=== PATIENT | female | born 1985 | race African-American/Black ===

== ENCOUNTER → 2019-11-20 | Outpatient (CLI) | payer OTHER ==
[2019-11-20 17:10] LABS: A TYPE INFLUENZA AG NEGATIVE (NEGATIVE); B INFLUENZA AG NEGATIVE (NEGATIVE)
== END ==
LOC: LAB 16:07
PROVIDERS: ATTEND Nurse Practitioner Family
DX: J06.9 Acute upper respiratory infection, unspecified (principal)
CPT/HCPCS: 87804

== ENCOUNTER 2020-05-09 12:09 | Outpatient (CLI) | payer MEDICAID ==
[2020-05-09 12:58] LABS: APPEARANCE,URINE CLEAR; BILIRUBIN,URINE NEGATIVE (NEGATIVE); COLOR,URINE YELLOW; GLUCOSE, URINE NEGATIVE (NEGATIVE); KETONES,URINE TRACE mg/dL (NEGATIVE); LEUKOCYTE ESTERASE,URINE NEGATIVE (NEGATIVE); NITRITE,URINE NEGATIVE (NEGATIVE); PROTEIN,URINE 30 mg/dL (NEGATIVE); URINE SPECIFIC GRAVITY 1.019; UROBILINOGEN,URINE NEGATIVE mg/dL (<2.0)
[2020-05-09] MEDS ORDERED: HYDROXYZINE PAMOATE 50 MG CAPSULE PO ONE (13:05)
[2020-05-09] MEDS ORDERED: HYDROXYZINE PAMOATE 50 MG CAPSULE ONE (13:06)
[2020-05-09 13:30] LABS: URINE AMPHETAMINES SCREEN NEGATIVE; URINE BARBITURATES SCREEN NEGATIVE; URINE BENZODIAZEPINES SCREEN NEGATIVE; URINE COCAINE SCREEN NEGATIVE; URINE MARIJUANA (THC) SCREEN NEGATIVE; URINE METHADONE SCREEN NEGATIVE; URINE PHENCYCLIDINE SCREEN NEGATIVE
--- NOTE | 2020-05-09 14:13 | Non Stress Test Report ---
Non Stress Test Datetime Report Generated by CPN: 05/09/2020 14:12 DEMOGRAPHIC Test Number: 1 EGA NST: 33.1 INDICATION Indication for Study (NST) Other: possible SROM VITAL SIGNS Temperature - NST: 98.4 Pulse - NST: 85 RESP - NST: 16 NBPSYS NST: 113 NBPDIA NST: 67 MONITORING Monitor Explained: Monitor Explained; Test Explained; Patient Verbalized Understanding Time on Monitor: 05/09/2020 12:35 Time off Monitor: 05/09/2020 13:56 NST Duration: 81 NST INTERVENTIONS NST Interventions: PO Hydration; Reposition Patient Physician Notified NST: N Mccullough CNM BABY A: [id number] BABY A Movement : Present Contraction Frequency : 2-5 FHR Baseline : 135 FHR Baseline : 135 Accelerations : Prolonged Decelerations : None Variability : Moderate 6-25bpm NST Review: Meets Criteria for Reactive NST NST Review and Verified By : SAutry NST Results: Reactive NST COMMENTS NST Comments: pt unaware of uc NST REPORT Report Trigger: Send Report
[2020-05-09] MEDS ORDERED: RINGERS SOLUTION,LACTATED 1,000 ML IV ONE (14:43)
[2020-05-09] MEDS ORDERED: RINGERS SOLUTION,LACTATED 1,000 ML IV PRN (14:43)
== END 2020-05-09 14:31 | disposition home or self-care (01) ==
LOC: LC 12:09
PROVIDERS: ATTEND Obstetrics & Gynecology Gynecology
DX: O47.03 False labor before 37 completed weeks of gestation, third trimester (principal); O09.523 Supervision of elderly multigravida, third trimester; Z3A.33 33 weeks gestation of pregnancy
CPT/HCPCS: 59025; 81001; 80307; 84112; J3490

== ENCOUNTER 2020-06-23 01:00 | Inpatient (IN) | payer MEDICAID ==
[2020-06-23] MEDS ORDERED: OXYTOCIN/0.9 % SODIUM CHLORIDE 30 UNIT/500 ML RTUINJ IV PRN ×2 (01:06→12:13)
[2020-06-23] MEDS ORDERED: ACETAMINOPHEN 325 MG TABLET PO PRN ×2 (01:06→12:13)
[2020-06-23] MEDS ORDERED: MAG HYDROX/AL HYDROX/SIMETH SUSP 30 ML UDCUP PO PRN (01:06)
[2020-06-23] MEDS ORDERED: DINOPROSTONE 10 MG VAGINAL INSERT.SR PV ONE ×2 (01:06→01:30)
[2020-06-23] MEDS ORDERED: RINGERS SOLUTION,LACTATED 300 ML IV ONE (01:06)
[2020-06-23] MEDS ORDERED: ZOLPIDEM TARTRATE 5 MG TABLET PO PRN ×2 (01:06→12:13)
[2020-06-23 01:41] LABS: ABSOLUTE LYMPHOCYTES (AUTO) 1.8 10^3/uL (0.5-4.7); ABSOLUTE MONOCYTES (AUTO) 0.5 10^3/uL (0.1-1.4); ABSOLUTE NEUT (AUTO) 5.5 10^3/uL (1.7-8.2); BASOPHILS % (AUTO) 0.3 % (0-2); EOSINOPHILS % (AUTO) 0.2 % (0-6); HEMOGLOBIN 12.8 g/dL (12.0-15.5); LYMPHOCYTES % (AUTO) 22.8 % (13-45); MEAN CORPUSCULAR HEMOGLOBIN 32.4 pg (27.0-33.4); MEAN CORPUSCULAR HGB CONC 34.6 g/dL (32.0-36.0); MEAN CORPUSCULAR VOLUME 94 fl (80-97); MONOCYTES % (AUTO) 6.3 % (3-13); PLATELET COUNT 138 10^3/uL (150-450); RED BLOOD COUNT 3.95 10^6/uL (3.72-5.28); RED CELL DISTRIBUTION WIDTH 13.4 % (11.5-14.0); SEGMENTED NEUTROPHILS % (AUTO) 70.4 % (42-78); TOTAL CELLS COUNTED % (AUTO) 100 %; WHITE BLOOD COUNT 7.8 10^3/uL (4.0-10.5)
[2020-06-23 02:01] LABS: ALBUMIN 3.4 g/dL (3.5-5.0); ALKALINE PHOSPHATASE 89 U/L (38-126); ANION GAP 10 (5-19); ASPARTATE AMINO TRANSFERASE 43 U/L (14-36); BILIRUBIN,TOTAL 0.4 mg/dL (0.2-1.3); BLOOD UREA NITROGEN 8 mg/dL (7-20); CALCIUM 9.1 mg/dL (8.4-10.2); CARBON DIOXIDE 19 mmol/L (22-30); CHLORIDE 106 mmol/L (98-107); GLUCOSE 114 mg/dL (75-110); POTASSIUM 4.2 mmol/L (3.6-5.0); TOTAL PROTEIN 6.3 g/dL (6.3-8.2)
[2020-06-23] MEDS ORDERED: DINOPROSTONE 10 MG VAGINAL INSERT.SR ONE (02:12)
[2020-06-23] MEDS: RINGERS SOLUTION,LACTATED 1,000 ML IV PRN ×2 (02:32→09:45)
[2020-06-23 03:33] LABS: APPEARANCE,URINE SLIGHTLY-CLOUDY; BILIRUBIN,URINE NEGATIVE (NEGATIVE); COLOR,URINE YELLOW; GLUCOSE, URINE 50 mg/dL (NEGATIVE); KETONES,URINE NEGATIVE (NEGATIVE); LEUKOCYTE ESTERASE,URINE TRACE (NEGATIVE); NITRITE,URINE NEGATIVE (NEGATIVE); PROTEIN,URINE 30 mg/dL (NEGATIVE); URINE SPECIFIC GRAVITY 1.021; UROBILINOGEN,URINE NEGATIVE mg/dL (<2.0)
[2020-06-23 03:48] LABS: URINE AMPHETAMINES SCREEN NEGATIVE; URINE BARBITURATES SCREEN NEGATIVE; URINE BENZODIAZEPINES SCREEN NEGATIVE; URINE COCAINE SCREEN NEGATIVE; URINE MARIJUANA (THC) SCREEN NEGATIVE; URINE METHADONE SCREEN NEGATIVE; URINE PHENCYCLIDINE SCREEN NEGATIVE
[2020-06-23] MEDS ORDERED: OXYTOCIN 10 UNIT/ML VIAL ONE (06:18)
[2020-06-23] MEDS ORDERED: LIDOCAINE 1% INJ-PF (10 MG/ML) 30 ML SDV ONE (06:18)
[2020-06-23] MEDS ORDERED: OXYTOCIN/0.9 % SODIUM CHLORIDE 30 UNIT/500 ML RTUINJ ONE (06:18)
[2020-06-23] MEDS ORDERED: MISOPROSTOL 0.2 MG TABLET ONE (06:18)
--- NOTE | 2020-06-23 08:43 | L&D Progress Notes ---
PROGRESS NOTES Datetime Report Generated by CPN: 06/23/2020 08:42 PROGRESS NOTE Comment: resting on rounds, discussed POC, irreg uc's, hsb at BS, Cat 1 strip LAST VAGINAL EXAM-NURSING Nursing Exam Dilitation: 1.0 Nursing Exam Effacement: thick Nursing Exam Station: high Nursing Exam Contractions: toco zeroed SIGNATURE SIGNATURE: [id number] Assignment: Paz Beltran MD Signature: with User ID: Alexa : with User ID: Alexa
[2020-06-23] MEDS ORDERED: PROMETHAZINE HCL INJ 25 MG/1 ML VIAL IV PRN (12:13)
[2020-06-23] MEDS ORDERED: PROMETHAZINE HCL 25 MG SUPP.RECT PR PRN (12:13)
[2020-06-23] MEDS ORDERED: ACETAMINOPHEN WITH CODEINE #3 TABLET PO PRN ×2 (12:13)
[2020-06-23] MEDS ORDERED: DIPH/PERTUSS(ACELL)/TETANUS VAC/PF 0.5 ML SYR (>=10YO) IM PRN (12:13)
[2020-06-23] MEDS ORDERED: NA PHOS,M-B/NA PHOS,DI-BA (ADULT) 133 ML ENEMA PR PRN (12:13)
[2020-06-23] MEDS ORDERED: DIBUCAINE 1% OINTMENT 28 GM TP PRN (12:13)
[2020-06-23] MEDS ORDERED: MAGNESIUM HYDROXIDE SUSP 30 ML UDCUP PO PRN (12:13)
[2020-06-23] MEDS ORDERED: BENZOCAINE/MENTHOL AEROSOL SPRAY 56 ML TOP PRN (12:13)
[2020-06-23] MEDS ORDERED: GLYCERIN/WITCH HAZEL LEAF 1 EACH MED..WIPE TP PRN (12:13)
[2020-06-23] MEDS ORDERED: PSEUDOEPHEDRINE HCL 30 MG TABLET PO PRN (12:13)
[2020-06-23] MEDS ORDERED: DIPHENHYDRAMINE HCL 25 MG CAPSULE PO PRN (12:13)
[2020-06-23] MEDS ORDERED: PROMETHAZINE HCL 25 MG TABLET PO PRN (12:13)
[2020-06-23] MEDS ORDERED: MEASLES,MUMPS&RUBELLA VACC/PF 0.5 ML VIAL SUBCUT PRN (12:13)
[2020-06-23] MEDS ORDERED: MISOPROSTOL 0.2 MG TABLET PR ONE (12:49)
[2020-06-23] MEDS ORDERED: ACETAMINOPHEN WITH CODEINE #3 TABLET ONE (13:59)
[2020-06-23] MEDS ORDERED: IBUPROFEN 800 MG TABLET ONE (14:00)
[2020-06-23] MEDS: IBUPROFEN 800 MG TABLET PO SCH ×2 (15:16→22:16)
[2020-06-23] MEDS: FERROUS SULFATE 325 MG TABLET PO SCH (17:19)
[2020-06-23] MEDS: DOCUSATE SODIUM 100 MG CAPSULE PO SCH (17:19)
[2020-06-23] MEDS: FAMOTIDINE 20 MG TABLET PO SCH (22:16)
[2020-06-24] MEDS: IBUPROFEN 800 MG TABLET PO SCH ×3 (05:13→21:08)
[2020-06-24 07:37] LABS: HEMOGLOBIN 12.8 g/dL (12.0-15.5); MEAN CORPUSCULAR HEMOGLOBIN 32.3 pg (27.0-33.4); MEAN CORPUSCULAR HGB CONC 33.8 g/dL (32.0-36.0); MEAN CORPUSCULAR VOLUME 96 fl (80-97); PLATELET COUNT 121 10^3/uL (150-450); RED BLOOD COUNT 3.97 10^6/uL (3.72-5.28); RED CELL DISTRIBUTION WIDTH 13.4 % (11.5-14.0); WHITE BLOOD COUNT 10.6 10^3/uL (4.0-10.5)
--- NOTE | 2020-06-24 09:43 | PDOC PROGRESS REPORT ---
Subjective-OB Progress Note for:: 06/24/20 Subjective: Doing well, no c/o, feeling good, Physical Exam (OB) Vital Signs: Temp Pulse Resp BP Pulse Ox 98.2 F 67 18 121/62 99 06/24/20 08:01 06/24/20 08:01 06/24/20 08:01 06/24/20 08:01 06/24/20 08:01 Intake & Output 06/23/20 06/24/20 06/25/20 06:59 06:59 06:59 Intake Total 902 Balance 902 Weight 89.4 kg - PIH/Pre-Eclampsia Clonus: Negative Headache: Absent Epigastric Pain: No Visual Changes: No - Maternal Morbidity 59. Maternal Morbidity (serious complications experinced by the mother associated with labor and delivery: None of the above - Lochia Lochia Amount: Small 10-25 ml Lochia Color: Rubra/Red - Abdomen Description: Round Hernia Present: No Fundal Description: Firm, Midline Fundal Height: u/u - u/2 Objective-Diagnostic Laboratory: 06/24/20 07:20 06/23/20 01:30 06/24/20 07:20 WBC 10.6 H RBC 3.97 Hgb 12.8 Hct 38.0 MCV 96 MCH 32.3 MCHC 33.8 RDW 13.4 Plt Count 121 L Assessment and Plan(PN) - Assessment and Plan (1) AMA (advanced maternal age) multigravida 35+ Qualifiers: Trimester: first trimester Qualified Code(s): O09.521 - Supervision of elderly multigravida, first trimester Is this a current diagnosis for this admission?: Yes (2) Precipitate labor, delivered, current hospitalization Is this a current diagnosis for this admission?: Yes (3) Vaginal delivery Is this a current diagnosis for this admission?: Yes - Time Spent with Patient Time with patient: Less than 15 minutes Medications reviewed and adjusted accordingly: Yes - Disposition Anticipated Discharge Disposition: Home, Self Care Anticipated Discharge Timeframe: within 24 hours
[2020-06-24] MEDS: DOCUSATE SODIUM 100 MG CAPSULE PO SCH ×2 (11:22→17:32)
[2020-06-24] MEDS: FAMOTIDINE 20 MG TABLET PO SCH ×2 (11:22→21:08)
[2020-06-24] MEDS: SENNOSIDES/DOCUSATE 8.6-50 MG 1 EACH TABLET PO SCH (11:22)
[2020-06-24] MEDS: FERROUS SULFATE 325 MG TABLET PO SCH ×2 (11:22→17:32)
[2020-06-24] MEDS: PRENATAL VITAMIN W DHA CAPSULE PO SCH (11:24)
[2020-06-25] MEDS: IBUPROFEN 800 MG TABLET PO SCH ×2 (05:34→14:33)
[2020-06-25] MEDS: PRENATAL VITAMIN W DHA CAPSULE PO SCH (09:35)
[2020-06-25] MEDS: DOCUSATE SODIUM 100 MG CAPSULE PO SCH (09:35)
[2020-06-25] MEDS: FERROUS SULFATE 325 MG TABLET PO SCH (09:35)
[2020-06-25] MEDS: SENNOSIDES/DOCUSATE 8.6-50 MG 1 EACH TABLET PO SCH (09:35)
[2020-06-25] MEDS: FAMOTIDINE 20 MG TABLET PO SCH (09:35)
--- NOTE | 2020-06-25 09:47 | PDOC PROGRESS REPORT ---
Subjective-OB Progress Note for:: 06/25/20 Subjective: Doing well, holding baby, ready to go home, Physical Exam (OB) Vital Signs: Temp Pulse Resp BP Pulse Ox 97.5 F 71 18 122/76 99 06/24/20 19:36 06/24/20 19:36 06/24/20 19:36 06/24/20 19:36 06/24/20 19:36 Intake & Output 06/24/20 06/25/20 06/26/20 06:59 06:59 06:59 Intake Total 902 800 Balance 902 800 - PIH/Pre-Eclampsia DTR's: 2 + Clonus: Negative Headache: Absent Epigastric Pain: No Visual Changes: No - Maternal Morbidity 59. Maternal Morbidity (serious complications experinced by the mother associated with labor and delivery: None of the above - Lochia Lochia Amount: Scant < 10 ml Lochia Color: Serosa/Brown - Abdomen Description: Soft, Round Hernia Present: No Fundal Description: Firm, Midline Fundal Height: u/u - u/2 Objective-Diagnostic Laboratory: 06/24/20 07:20 06/23/20 01:30 Assessment and Plan(PN) - Assessment and Plan (1) AMA (advanced maternal age) multigravida 35+ Qualifiers: Trimester: first trimester Qualified Code(s): O09.521 - Supervision of cass gonzalez multigravida, first trimester Is this a current diagnosis for this admission?: Yes (2) Precipitate labor, delivered, current hospitalization Is this a current diagnosis for this admission?: Yes (3) Vaginal delivery Is this a current diagnosis for this admission?: Yes - Time Spent with Patient Time with patient: Less than 15 minutes Medications reviewed and adjusted accordingly: Yes - Disposition Anticipated Discharge Disposition: Home, Self Care Anticipated Discharge Timeframe: within 24 hours - home today
--- NOTE | 2020-06-25 09:50 | PDOC DISCHARGE SUMMARY ---
Impression - Admit/DC Date/PCP Admission Date/Primary Care Provider: 06/23/20 01:00 DAPHNE PINTO MD Discharge Date: 06/25/20 - Discharge Diagnosis (1) AMA (advanced maternal age) multigravida 35+ Is this a current diagnosis for this admission?: Yes (2) Precipitate labor, delivered, current hospitalization Is this a current diagnosis for this admission?: Yes (3) Vaginal delivery Is this a current diagnosis for this admission?: Yes - Additional Information Resuscitation Status: Full Code Discharge Diet: As Tolerated, Regular Discharge Activity: Activity As Tolerated Referrals: DAPHNE PINTO MD [Primary Care Provider] - (rtc 4 weeks) Home Medications: Pnv 102/Iron/Folate 1/Dss/Dha [Vitafol Fe+ Docusate Combo Pck] 1 each PO DAILY 05/09/20 HPI Gestational Age: 39.4 Reason(s) for Admission: Induction of Labor, Gestional Diabetes, Advanced Maternal Age Procedures: NST, Ultrasound Complication(s): Laceration-Perineal Laceration-Degree: 1st Hospital Course Hospital Course: routine 59. Maternal Morbidity (serious complications experinced by the mother associated with labor and delivery: None of the above Results Laboratory Results: WBC 10.6 10^3/uL (4.0-10.5) H 06/24/20 07:20 RBC 3.97 10^6/uL (3.72-5.28) 06/24/20 07:20 Hgb 12.8 g/dL (12.0-15.5) 06/24/20 07:20 Hct 38.0 % (36.0-47.0) 06/24/20 07:20 MCV 96 fl (80-97) 06/24/20 07:20 MCH 32.3 pg (27.0-33.4) 06/24/20 07:20 MCHC 33.8 g/dL (32.0-36.0) 06/24/20 07:20 RDW 13.4 % (11.5-14.0) 06/24/20 07:20 Plt Count 121 10^3/uL (150-450) L 06/24/20 07:20 Lymph % (Auto) 22.8 % (13-45) 06/23/20 01:30 Nye % (Auto) 6.3 % (3-13) 06/23/20 01:30 Eos % (Auto) 0.2 % (0-6) 06/23/20 01:30 Baso % (Auto) 0.3 % (0-2) 06/23/20 01:30 Absolute Neuts (auto) 5.5 10^3/uL (1.7-8.2) 06/23/20 01:30 Absolute Lymphs (auto) 1.8 10^3/uL (0.5-4.7) 06/23/20 01:30 Absolute Monos (auto) 0.5 10^3/uL (0.1-1.4) 06/23/20 01:30 Absolute Eos (auto) 0.0 10^3/uL (0.0-0.6) 06/23/20 01:30 Absolute Basos (auto) 0.0 10^3/uL (0.0-0.2) 06/23/20 01:30 Seg Neutrophils % 70.4 % (42-78) 06/23/20 01:30 Sodium 135.1 mmol/L (137-145) L 06/23/20 01:30 Potassium 4.2 mmol/L (3.6-5.0) 06/23/20 01:30 Chloride 106 mmol/L (98-107) 06/23/20 01:30 Carbon Dioxide 19 mmol/L (22-30) L 06/23/20 01:30 Anion Gap 10 (5-19) 06/23/20 01:30 BUN 8 mg/dL (7-20) 06/23/20 01:30 Creatinine 0.66 mg/dL (0.52-1.25) 06/23/20 01:30 Est GFR ( Amer) > 60 (>60) 06/23/20 01:30 Est GFR (MDRD) Non-Af > 60 (>60) 06/23/20 01:30 Glucose 114 mg/dL (75-110) H 06/23/20 01:30 Calcium 9.1 mg/dL (8.4-10.2) 06/23/20 01:30 Total Bilirubin 0.4 mg/dL (0.2-1.3) 06/23/20 01:30 Direct Bilirubin 0.0 mg/dL (0.0-0.4) 06/23/20 01:30 Neonat Total Bilirubin Not Reportable 06/23/20 01:30 Neonat Direct Bilirubin Not Reportable 06/23/20 01:30 Neonat Indirect Bili Not Reportable 06/23/20 01:30 AST 43 U/L (14-36) H 06/23/20 01:30 ALT 35 U/L (<35) 06/23/20 01:30 Alkaline Phosphatase 89 U/L (38-126) 06/23/20 01:30 Total Protein 6.3 g/dL (6.3-8.2) 06/23/20 01:30 Albumin 3.4 g/dL (3.5-5.0) L 06/23/20 01:30 Urine Color YELLOW 06/23/20 02:15 Urine Appearance SLIGHTLY-CLOUDY 06/23/20 02:15 Urine pH 6.0 (5.0-9.0) 06/23/20 02:15 Ur Specific [place] 1.021 06/23/20 02:15 Urine Protein 30 mg/dL (NEGATIVE) H 06/23/20 02:15 Urine Glucose (UA) 50 mg/dL (NEGATIVE) H 06/23/20 02:15 Urine Ketones NEGATIVE mg/dL (NEGATIVE) 06/23/20 02:15 Urine Blood NEGATIVE (NEGATIVE) 06/23/20 02:15 Urine Nitrite NEGATIVE (NEGATIVE) 06/23/20 02:15 Urine Bilirubin NEGATIVE (NEGATIVE) 06/23/20 02:15 Urine Urobilinogen NEGATIVE mg/dL (<2.0) 06/23/20 02:15 Ur Leukocyte Esterase TRACE (NEGATIVE) H 06/23/20 02:15 Urine Ascorbic Acid 20 (NEGATIVE) H 06/23/20 02:15 Membranes Rupture NEGATIVE (NEGATIVE) 06/23/20 02:25 Urine Opiates Screen NEGATIVE 06/23/20 02:15 Urine Methadone Screen NEGATIVE 06/23/20 02:15 Ur Barbiturates Screen NEGATIVE 06/23/20 02:15 Ur Phencyclidine Scrn NEGATIVE 06/23/20 02:15 Ur Amphetamines Screen NEGATIVE 06/23/20 02:15 U Benzodiazepines Scrn NEGATIVE 06/23/20 02:15 Urine Cocaine Screen NEGATIVE 06/23/20 02:15 U Marijuana (THC) Screen NEGATIVE 08/21/20 02:15 RPR NONREACTIVE (NONREACTIVE) 06/23/20 01:30 Blood Type A POSITIVE 06/23/20 01:30 Antibody Screen NEGATIVE 06/23/20 01:30 Plan Health Concerns: routine pp Plan of Treatment: discharge home, rev S&S to report Goals: no complications Time Spent: Less than 30 Minutes
[2020-06-25 14:23] VITALS: BP 126/70
--- NOTE | 2020-06-27 11:46 | Delivery Summary ---
Del Sum A-C Datetime Report Generated by CPN: 06/27/2020 11:45 DELIVERY PERSONNEL DELIVERY PERSONNEL: [id number] Delivery Doctor:: Yissel Guzman CNM Nurse Curb Supervisor Certified:: Yissel Guzman CNM Labor and Delivery Nurse:: Angelika Sol RNpaper conservator Nurse:: MONIKA Cardoza Nursery Nurse:: Rosibel Meyers RN Nursery Nurse:: MARIOLA Chaudhari Tech/SURGICAL AIDE: Shira You, ST MATERNAL INFORMATION Delivery Anesthesia: Local Medications After Delivery: Pitocin 30 Units in 500ml NS/D5W Delivery QBL: 100 Maternal Complications: Other Complication Details: GDM Provider Comments: pt progressed quickly and delivered a live female infant from OA to EDILSON over NL laceration, nuchal cord x 1, reduced after delivery, placed on mothers abd, cord clamped and cut and given to nursery nurse for stimulation,spont delivery of grossly normal intact placenta, 3 VC, ML laceration repaired without difficulty, cervix intact, rectum patent, uterine atony, massage, IV, Pitocin and Cytotec 1000 mcg via rectum, Baby and mom remain in recovery in stable condition LABOR SUMMARY EDC: 06/26/2020 00:00 No. Babies in Womb: 1 Attempted: No Labor Anesthesia: None LABOR INFORMATION Reason for Induction: Not Applicable; Maternal Diabetes; Other Reason for Induction- Other: AMA Onset of Labor: 06/23/2020 10:50 Complete Dilatation: 06/23/2020 12:12 Cervical Ripening Agents: Cervidil Oxytocin: N/A Group B Beta Strep: Negative Steroids Given: None Reason Steroids Not Administered: Not Applicable MEMBRANES Membranes Rupture Method: Spontaneous Rupture of Membranes: 06/23/2020 10:50 Length of Rupture (hr): 1.55 Amniotic Fluid Color: Clear Amniotic Fluid Amount: Moderate Amniotic Fluid Odor: Normal STAGES OF LABOR Stage 1 hr: 1 Stage 1 min: 22 Stage 2 hr: 0 Stage 2 min: 11 Stage 3 hr: 0 Stage 3 min: 5 Total Time in Labor hr: 1 Total Time in Labor min: 38 VAGINAL DELIVERY Episiotomy: None Laceration #1: Perineal Laceration Extension #1: First Degree Laceration Repair: Yes Laceration Repair Note: 2-0 chromic Sponge Count Correct: N/A Sharps Count Correct: N/A CSECTION DELIVERY Primary Indication: N/A Secondary Indication: N/A CSection Incidence: N/A Labor: N/A Elective: N/A CSection Incision: N/A BABY A INFORMATION Delivery Date/Time: 06/23/2020 12:23 Method of Delivery: Vaginal Method of Delivery: Vaginal Nurse Controlled Delivery: No Born in Route : No : N/A Forceps: N/A Vacuum Extraction: N/A Shoulder Dystocia : No PRESENTATION/POSITION BABY A Presentation: Cephalic Cephalic Presentation: Vertex Vertex Position: Right Occipital Anterior Breech Presentation: N/A PLACENTA INFORMATION BABY A Placenta Delivery Time : 06/23/2020 12:28 Placenta Method of Delivery: Spontaneous Placenta Method of Delivery: Spontaneous Placenta Status: Delivered SCORES BABY A Heart Rate 1 min: >100 bpm Resp Effort 1 min: Slow, Irregular Reflex Irritability 1 min: Grimace Muscle Tone 1 min: Some Flexion of Extremities Color 1 min: Blue/Pale Resuscitation Effort 1 min: Tactile Stimulation; PPV/NCPAP SCORE 1 MIN: 5 Heart Rate 5 min: >100 bpm Resp Effort 5 min: Good Cry Reflex Irritability 5 min: Cough or Sneeze or Pulls Away Muscle Tone 5 min: Active Motion Color 5 min: Body Atalissa, Extremities Blue Resuscitation Effort 5 min: N/A SCORE 5 MIN: 9 Resuscitation Effort 10 min: N/A INFORMATION BABY A Gestational Age at Delivery: 39.4 Gestational Status: Full Term- 39- 40.6 Weeks Infant Outcome : Liveborn Infant Condition : Stable Sex: Female Infant Sex: Female IDENTIFICATION BABY A Infant Verification Date/Time: 06/23/2020 12:43 ID Band Number: [id number] Mother's Name Verified: Yes Infant RN Verifying : Krysta Sparrow RNC Additional Verifying Personnel: Angelika Sol RN WEIGHT/LENGTH BABY A Infant Birthweight (gm): 3779 Weight (lb): 8 Infant Weight (oz): 5 Infant Length (in): 19.75 Infant Length (cm): 50.17 CORD INFORMATION BABY A No. Cord Vessels: 3 Nuchal Cord : Around Neck x1, Loose Cord Blood Taken: Yes-For Storage (Mom's Blood type +) Suction: None ASSESSMENT BABY A Complications: None Physical Findings at Delivery: Within Normal Limits Infant Respirations: Appears Normal Skin to Skin: Yes Skin to Skin Time (min): 60 Print Binding And Finishing Worker/ALS Called : No Infant Care By: Garima Meyers RN/T Curly RN Transferred To: Remains with Mother BABY B INFORMATION : N/A
== END 2020-06-25 15:15 | disposition home or self-care (01) | DRG 807 ==
LOC: LR 01:00 → 2S 15:06
PROVIDERS: ADMIT Obstetrics & Gynecology Gynecology; ATTEND Obstetrics & Gynecology Gynecology
PROC: 10E0XZZ Delivery of Products of Conception, External Approach (ICD-10-PCS; principal; 2020-06-23)
PROC: 0HQ9XZZ Repair Perineum Skin, External Approach (ICD-10-PCS; 2020-06-23)
DX: O62.3 Precipitate labor (principal); Z37.0 Single live birth; O70.0 First degree perineal laceration during delivery; O24.429 Gestational diabetes mellitus in childbirth, unspecified control; O69.81X0 Labor and delivery complicated by cord around neck, without compression, not applicable or unspecified; Z11.59 Encounter for screening for other viral diseases; Z3A.39 39 weeks gestation of pregnancy
CPT/HCPCS: 36415; 80053; 80307; 81005; 84112; 85025; 85027; 86592; 86850; 86900; 86901; J2590; J3490

== ENCOUNTER 2020-07-01 22:00 | Emergency (ER) | payer MEDICAID ==
[2020-07-01 22:11] VITALS: BP 128/83
--- NOTE | 2020-07-01 22:45 | ER Document Report ---
ED Extremity Problem, Lower - General Chief Complaint: Leg Pain Stated Complaint: INNER THIGH PAIN/GAVE 8 DAYS AGO Time Seen by Provider: 07/01/20 22:17 Primary Care Provider: DAPHNE PINTO MD [Primary Care Provider] - Follow up as needed Mode of Arrival: Wheelchair Notes: 35-year-old female presented to ED for complaint of left inner thigh/groin pain for the last 2 days. She states 2 days ago she had some mild pain and then the next morning it got much worse last night it was more painful this morning she is not been able to bear weight. She states she did not come to the hospital till tonight because she thought it would go away if she kept taking ibuprofen. She states she called the [facility] and they told her she needed to come in and rule out a blood clot. Because she came in after 10:00 I am not able to do a venous Doppler at this time. I have discussed this patient with Dr. lopez. He recommended getting blood work and did not make her wait for the results and to give her outpatient slip for venous Doppler in the morning. She can follow- up with emergency room if the venous Doppler is positive. They will have the labs to follow-up with if she does have a DVT. Patient was agreeable to this treatment plan. REVIEW OF SYSTEMS: CONSTITUTIONAL : Denies fever, chills, or sweats. Denies recent illness. EENT: Denies eye, ear, throat, or mouth pain or symptoms. Denies nasal or sinus congestion. CARDIOVASCULAR: Denies chest pain. RESPIRATORY: Denies cough, cold, or chest congestion. Denies shortness of breath, difficulty breathing, or wheezing. GASTROINTESTINAL: Denies abdominal pain. Denies nausea, vomiting, or diarrhea. Denies constipation. Last BM: GENITOURINARY: Denies difficulty urinating, painful urination, burning, frequency, or blood in urine. FEMALE GENITOURINARY: Denies vaginal bleeding, abnormal or irregular periods. Childbirth 8 days ago MUSCULOSKELETAL: Pain to the left inner thigh/groin x2 days that has increased over the last 2 days until now it is very difficult to bear weight due to the pain to her left groin and thigh going down to her leg SKIN: Denies rash or skin lesions. HEMATOLOGIC : Denies easy bruising or bleeding. LYMPHATIC: Denies swollen, enlarged glands. NEUROLOGICAL: Denies altered mental status or loss of consciousness. Denies headache. Denies weakness or paralysis or loss of use of either side. Denies problems with gait or speech. Denies sensory or motor loss. PSYCHIATRIC: Denies anxiety or stress or depression. ALL OTHER SYSTEMS REVIEWED AND NEGATIVE. VITAL SIGNS: Within normal limits. GENERAL: No acute distress, non-toxic appearance. HEAD: Normal with no signs of head trauma. EYES: PERRLA, EOMI, conjunctiva normal, no discharge. EARS: Hearing grossly intact. NOSE: Normal. THROAT: Oropharynx is normal. NECK: Normal range of motion, no tenderness, supple, no lymphadenopathy, No adenopathy, no JVD. CHEST: Clear breath sounds bilaterally. No wheezes, rales, or rhonchi. CARDIAC: Regular rate and rhythm. S1 and S2, without murmurs, gallops, or rubs. GENITOURINARY: Normal, No tenderness LYMPATHTIC: No lymphadenopathy noted. MUSCULOSKELETAL: Pain to the left inner thigh/groin area. No obvious abnormalities noted. Extreme tenderness to palpation. Patient has difficulty walking or moving this thigh due to the discomfort. No obvious palpable masses. No lymphadenopathy NEUROLOGICAL: Alert and oriented x 3. No focal sensory or strength deficits. Speech normal. Follows commands appropriately. PSYCHIATRIC: Normal Affect, judgement and mood. SKIN: No abscesses no rashes no obvious swelling or edema TRAVEL OUTSIDE OF THE [place] IN LAST 30 DAYS: No - HPI Patient complains to provider of: Pain - Left groin/upper thigh Location: Thigh Occurred: Other - Gradually over 2 days Onset/Duration: Gradual Quality of pain: Pressure, Sharp, Throbbing Severity: Moderate Pain Level: 3 Context: Other - Started 2 days ago in the morning and has decreased each time she woke up each time she went to bed Recent injury: No Associated symptoms: Painful ambulation - Very difficult to walk due to the pain in the left thigh and groin Exacerbated by: Hanging down, Movement, Walking Relieved by: Nothing - Related Data Allergies/Adverse Reactions: No Known Allergies Allergy (Verified 06/23/20 01:11) Past Medical History - General Information source: Patient - Social History Smoking Status: Never Smoker Chew tobacco use (# tins/day): No Frequency of alcohol use: None Drug Abuse: None Lives with: Family Family History: Reviewed & Not Pertinent Patient has suicidal ideation: No Patient has homicidal ideation: No - Past Medical History Cardiac Medical History: Reports: None Pulmonary Medical History: Reports: None EENT Medical History: Reports: None Neurological Medical History: Reports: None Endocrine Medical History: Reports: None Renal/ Medical History: Reports: None Malignancy Medical History: Reports: None GI Medical History: Reports: None Musculoskeletal Medical History: Reports None Skin Medical History: Reports None Psychiatric Medical History: Reports: None Traumatic Medical History: Reports: None Infectious Medical History: Reports: None Surgical Hx: Negative Past Surgical History: Reports: None - Immunizations Immunizations up to date: Yes Hx Diphtheria, Pertussis, Tetanus Vaccination: Yes Physical Exam - Vital signs Vitals: Temp Pulse Resp BP Pulse Ox 97.8 F 87 17 128/83 H 100 07/01/20 22:10 07/01/20 22:10 07/01/20 22:10 07/01/20 22:10 07/01/20 22:10 Course - Vital Signs Vital signs: Temp Pulse Resp BP Pulse Ox 97.8 F 87 17 128/83 H 100 07/01/20 22:16 07/01/20 22:10 07/01/20 22:10 07/01/20 22:10 07/01/20 22:10 - Laboratory Result Diagrams: 07/01/20 22:25 07/01/20 22:25 Laboratory results interpreted by me: 07/01/20 22:25 Sodium 135.9 L ALT 50 H Discharge - Discharge Clinical Impression: left inner thigh pain 8 days post Condition: Stable Disposition: HOME, SELF-CARE Additional Instructions: You were seen today for left inner thigh/groin pain x2 days that is gotten p rogressively worse. I have ordered you a venous Doppler in the morning. Please come to the front of the hospital showed them your outpatient order so that they can notify the doctor team that you need to have a venous Doppler of the left lower extremity. Venous Doppler is not available after 10:00 at night. Please come in around 8:00 in the morning to have his Doppler done to rule out a deep vein thrombosis. We have examined you and there is no obvious abscesses or abnormalities at this time. I have ordered CBC chemistry PT and PTT if the Doppler is positive please let the emergency room doctor know that the lab results should be ready. You can have your [facility] or primary care doctor received these labs if you need them. You can get some [id number] Voltaren gel to use tonight for the pain. FOLLOW-UP CARE: If you have been referred to a physician for follow-up care, call the physicians office for an appointment as you were instructed or within the next two days. If you experience worsening or a significant change in your symptoms, notify the physician immediately or return to the Emergency Department at any time for re-evaluation. Forms: Elevated Blood Pressure, Follow-Up Radiology Testing, Follow-Up Outpatient Testing Referrals: DAPHNE PINTO MD [Primary Care Provider] - Follow up as needed
[2020-07-01 22:47] LABS: ABSOLUTE MONOCYTES (AUTO) 0.8 10^3/uL (0.1-1.4); ABSOLUTE NEUT (AUTO) 6.9 10^3/uL (1.7-8.2); HEMOGLOBIN 15.1 g/dL (12.0-15.5); TOTAL CELLS COUNTED % (AUTO) 100 %; WHITE BLOOD COUNT 9.8 10^3/uL (4.0-10.5)
[2020-07-01 22:55] LABS: BASOPHILS % (AUTO) 0.4 % (0-2); EOSINOPHILS % (AUTO) 0.4 % (0-6); HEMATOCRIT 44.9 % (36.0-47.0); LYMPHOCYTES % (AUTO) 20.3 % (13-45); MEAN CORPUSCULAR HGB CONC 33.6 g/dL (32.0-36.0); MEAN CORPUSCULAR VOLUME 95 fl (80-97); MONOCYTES % (AUTO) 7.7 % (3-13); PLATELET COUNT 234 10^3/uL (150-450); RED BLOOD COUNT 4.71 10^6/uL (3.72-5.28); RED CELL DISTRIBUTION WIDTH 13.3 % (11.5-14.0); SEGMENTED NEUTROPHILS % (AUTO) 71.2 % (42-78)
[2020-07-01 23:01] LABS: INTERNATIONAL RATION (INR) 0.93; PROTHROMBIN TIME 12.6 SEC (11.4-15.4)
[2020-07-01 23:02] LABS: PARTIAL THROMBOPLASTIN TIME 33.3 SEC (23.5-35.8)
[2020-07-01 23:11] LABS: ALKALINE PHOSPHATASE 97 U/L (38-126); ANION GAP 11 (5-19); ASPARTATE AMINO TRANSFERASE 28 U/L (14-36); BILIRUBIN,DIRECT 0.2 mg/dL (0.0-0.4); BILIRUBIN,TOTAL 0.6 mg/dL (0.2-1.3); BLOOD UREA NITROGEN 13 mg/dL (7-20); CALCIUM 9.3 mg/dL (8.4-10.2); CARBON DIOXIDE 23 mmol/L (22-30); CHLORIDE 102 mmol/L (98-107); GLUCOSE 87 mg/dL (75-110); POTASSIUM 4.9 mmol/L (3.6-5.0); TOTAL PROTEIN 6.7 g/dL (6.3-8.2)
== END 2020-07-01 22:54 | disposition home or self-care (01) ==
LOC: ER 22:00
DX: O90.89 Other complications of the puerperium, not elsewhere classified (principal); M79.652 Pain in left thigh; R10.30 Lower abdominal pain, unspecified
CPT/HCPCS: 36415; 80053; 85025; 85610; 85730; 99283

== ENCOUNTER → 2020-07-02 | Outpatient (CLI) | payer MEDICAID ==
--- NOTE | 2020-07-02 14:48 | RADIOLOGY REPORT (SQ) ---
EXAM DESCRIPTION: VENOUS UNILATERAL LOWER IMAGES COMPLETED DATE/TIME: 07/02/2020 2:19 pm REASON FOR STUDY: LLE PAIN COMPARISON: None. TECHNIQUE: Dynamic and static vargas scale and color images acquired of the left leg venous system. Se lected spectral images acquired with additional compression and augmentation maneuvers. The contralat eral common femoral vein and saphenofemoral junction were also imaged. Images stored on PACS. LIMITATIONS: None. FINDINGS: LEFT COMMON FEMORAL: Normal phasicity, compression and augmentation. No visualized echogenic material on g ray scale. No defects on color images. FEMORAL: Normal compression and augmentation. No visualized echogenic material on vargas scale. No defe cts on color images. POPLITEAL: Normal compression, augmentation. No visualized echogenic material on vargas scale. No defec ts on color images. CALF VESSELS: Normal compression, augmentation. No visualized echogenic material on vargas scale. No de fects on color images. GSV and SSV: Normal compression, augmentation. No visualized echogenic material on vargas scale. No def ects on color images. ANY DEEP VENOUS INSUFFICIENCY: Not evaluated. ANY EVIDENCE OF POPLITEAL CYST: No. OTHER: No other significant finding. RIGHT COMMON FEMORAL VEIN AND SAPHENOFEMORAL JUNCTION: Normal phasicity, compression and augmentation. No visualized echogenic material on vargas scale. No de fects on color images. IMPRESSION: NO EVIDENCE OF DVT OR SVT IN THE LEFT LEG. TECHNICAL DOCUMENTATION: JOB ID: [id number] 2010 [employer]- All Rights Reserved Reading location - IP/workstation name: [id number]
== END ==
LOC: RAD 12:47
PROVIDERS: ATTEND Nurse Practitioner Family
DX: O90.89 Other complications of the puerperium, not elsewhere classified (principal); M79.662 Pain in left lower leg
CPT/HCPCS: 93971